=== PATIENT | male | born 1980 | race Caucasian/White ===

== ENCOUNTER 2019-11-06 18:34 | Emergency (ER) | payer OTHER ==
[2019-11-06] MEDS ORDERED: DIPH/PERTUSS(ACELL)/TETANUS VAC/PF 0.5 ML SYR (>=10YO) IM ONE (19:20)
[2019-11-06] MEDS ORDERED: SULFAMETHOXAZOLE/TRIMETHOPRIM 800-160 MG TABLET PO ONE (21:19)
--- NOTE | 2019-11-06 21:27 | ER Document Report ---
ED General - General Chief Complaint: Puncture Wound to Foot Stated Complaint: ANIMAL BITE Time Seen by Provider: 11/06/19 19:03 Mode of Arrival: Ambulatory Information source: Patient Notes: 39-year-old man presents with a injury to his left foot apparently he [place] in the [place] when he felt a sharp pain in burning involving the left foot. He sustained an injury which is likely a stingray envenomation. His tetanus status is unclear, he has no allergies to medications. He complains of pain, however symptoms improved dramatically while soaking the foot in warm water after triage.. - Related Data Allergies/Adverse Reactions: No Known Allergies Allergy (Unverified 11/06/19 19:28) Past Medical History - Social History Smoking Status: Never Smoker Chew tobacco use (# tins/day): No Drug Abuse: None Family History: Reviewed & Not Pertinent Patient has homicidal ideation: No Review of Systems - Review of Systems Notes: Constitutional: Negative for fever. HENT: Negative for sore throat. Eyes: Negative for visual changes. Cardiovascular: Negative for chest pain. Respiratory: Negative for shortness of breath. Gastrointestinal: Negative for abdominal pain, vomiting or diarrhea. Genitourinary: Negative for dysuria. Musculoskeletal: + Right foot with a injury to the medial posterior heel, and open wound with no palpable heath Skin: Negative for rash. Neurological: Negative for headaches, weakness or numbness. 10 point ROS negative except as marked above and in HPI. Physical Exam - Vital signs Vitals: Temp 97.8 F 11/06/19 19:29 - Notes Notes: PHYSICAL EXAMINATION: Physical Exam: General: Well-nourished well-developed in no acute distress HEENT: NC/AT, pupils equal round and reactive to light, MM moist,nares clear, oropharynx clear, airway patent Neck: supple, no adenopathy, no masses. Good range of motion Lungs: clear, no wheezing, no rales no rhonchi CVS: Regular rate and rhythm no murmur gallop or rub Abdomen: Soft, active, nontender, no masses, no hepatosplenomegaly Ext: + Right foot with a injury to the medial posterior heel, and open wound with no palpable heath Neuro: Alert and responsive, moving all 4 extremities on command, cranial nerves intact, no focal findings Skin: Intact no open lesions, no rash PSYCH: Normal mood, normal affect. Course - Re-evaluation Re-evalutation: 11/06/19 21:27 Patient states that the pain is significantly improved. He is given a tetanus booster. He is covered with Bactrim for the risk of infection. An x-ray is being performed to exclude the possibility of fragmented stingray heath. - Vital Signs Vital signs: Temp Pulse Resp BP Pulse Ox 98.5 F 68 16 110/64 100 11/06/19 22:01 11/06/19 22:01 11/06/19 22:01 11/06/19 22:01 11/06/19 22:01 Discharge - Discharge Clinical Impression: Contact with stingray as cause of accidental injury, Open wound of left foot Condition: Good Disposition: HOME, SELF-CARE Instructions: Prophylactic Antibiotic (OM), Tetanus Immunization Given ([facility]) Additional Instructions: You were seen in the emergency department tonight with a injury associated with stingray envenomation. The x-ray is negative for foreign body related to the stingray heath, the wound will heal without surgical closure. Please take the antibiotics as prescribed, Bactrim. You may use ibuprofen and or Tylenol for pain. Follow-up with your primary care doctor as needed If you having worsening symptoms or other concerns you may return to the emergency department for further evaluation and treatment. HOME CARE INSTRUCTIONS & INFORMATION: Thank you for choosing us for your medical needs. We hope you're satisfied with the care you received. After you leave, you must properly care for your problem and, at the same time, observe its progress. Any condition can change. Some illnesses can change rapidly over hours or days. If your condition worsens, return to the Emergency Department or see your physician promptly. ABOUT YOUR X-RAYS AND EKG'S: If you had an EKG or X-rays taken, they have been read by the Emergency Physician. The X-rays and EKG's will also be read by a Radiologist or Revenue Integrity Analyst within 24 hours. If discrepancies are noted, you will be notified by telephone. Please be certain the ED has a correct telephone number & address where you can be reached. Also, realize that some fractures or abnormalities do not show up on initial X-rays. If your symptoms continue, see your physician. ABOUT YOUR LABORATORY TEST: If you had laboratory tests, the results have been reviewed by the Emergency Physician. Some test results (for example cultures) may not be available for several days. You will be contacted if any test result shows you need additional treatment. Please be certain the ED has a correct telephone number and address where you can be reached. ABOUT YOUR MEDICATIONS: You will receive instructions on how to take your medicine on the prescription label you receive. Additional information may be provided by the Pharmacy. If you have questions afterwards, call the ED for clarification or further instructions. Some prescribed medications may cause drowsiness. Do not perform tasks such as driving a car or operating machinery without consulting your Pharmacist. If you feel you need a refill of pain medication, your condition will need re-evaluation. Please do not call for a refill of any medication. ABOUT YOUR SIGNATURE: Signature of this document acknowledges to followin. Understanding that you received emergency treatment and that you may be released before al medical problems are known or treated. Please be certain the ED has a correct phone number & address where you can be reached. 2. Acknowledgement that you will arrange for follow-up care as recommended. 3. Authorization for the Emergency Physician to provide information to your follow-up Physician in order to maximize your care. AT ANY TIME, IF YOUR SYMPTOMS CHANGE SIGNIFICANTLY OR WORSEN OR YOU DEVELOP NEW SYMPTOMS, RETURN TO THE EMERGENCY DEPARTMENT IMMEDIATELY FOR RE-EVALUATION. OUR GOAL IS TO PROVIDE EXCELLENT MEDICAL CARE! WE HOPE THAT WE HAVE MET YOUR EXPECTATIONS DURING YOUR EMERGENCY DEPARTMENT VISIT AND THAT YOU FEEL YOU HAVE RECEIVED EXCELLENT CARE! Prescriptions: Sulfamethoxazole/Trimethoprim [Bactrim Ds Tablet] 1 tab PO BID #20 tablet Ibuprofen [Motrin 800 mg Tablet] 800 mg PO Q8H PRN #30 tab PRN Reason:
--- NOTE | 2019-11-06 21:53 | RADIOLOGY REPORT (SQ) ---
CLINICAL INDICATION: Stingray injury. . TECHNIQUE: 2 view(s) were obtained of the left foot. COMPARISON: None. FINDINGS: No acute displaced fracture is identified of the foot. Alignment appears anatomic. Joint spaces are within normal limits for age. Soft tissue swelling lateral aspect of the foot. No retained radiopaque foreign body. IMPRESSION: No evidence of acute displaced fracture of the foot. Soft tissue swelling
[2019-11-06 22:02] VITALS: BP 110/64
== END 2019-11-06 22:02 | disposition home or self-care (01) ==
LOC: ER 18:34
DX: T63.511A Toxic effect of contact with stingray, accidental (unintentional), initial encounter (principal); S91.331A Puncture wound without foreign body, right foot, initial encounter; W26.8XXA Contact with other sharp object(s), not elsewhere classified, initial encounter; Y93.19 Activity, other involving water and watercraft; Y92.832 Beach as the place of occurrence of the external cause; Z23 Encounter for immunization
CPT/HCPCS: 90471; 90715; 99283